=== PATIENT | male | born 1975 | race Caucasian/White ===

== ENCOUNTER 2019-04-09 23:55 | Emergency (ER) | payer OTHER ==
[~2019-04-09] VITALS: Ht 170.2 cm; Wt 84.1 kg
[2019-04-10 00:04] VITALS: Ht 170.2 cm; Wt 84.1 kg
[2019-04-10 02:06] VITALS: BP 138/76; PULSE 77; RESP 17
== END 2019-04-10 02:08 | disposition home or self-care (01) ==
LOC: E/R 23:55
DX: R07.89 Other chest pain (principal); Z87.891 Personal history of nicotine dependence
CPT/HCPCS: 36415; 71045; 80048; 84484; 85025; 93005